=== PATIENT | female | born 1955 | race Caucasian/White ===

== ENCOUNTER 2016-12-28 04:49 | Day surgery (SDC) | payer BC ==
[~2016-12-28 04:49] MED LIST: ACET500CAP PO; AMIT10 PO; ARAVA OR; ARAVA10 PO; ARAVA20 PO; ASA5GR PO; ASAB PO; BACDS PO; BENTYL20 PO; CARMOL TOP; COMP10B PO; DIL2TAB PO; DIL4TAB PO; ENBREL25 MG SC; ENBREL50 MG/M1 SC; FESO4 PO; FLUCON150 PO; FORTAMET500 MG PO; HUMARA IM; HUMIRA PEN SC; HUMIRA SC; HYZAAR1 TAB PO; IMDUR30 PO; IODOSORB TOP; ISORDIL10 PO; ISOSORB DIN30 MG PO; L20 PO; L40 PO; LEVAQUIN750 MG PO; LIDODERM T; LIOR10 PO; LORTAB 5 PO; LYRICA100 MG PO; MEDROL4 PO; MELA3 PO; MELATONIN5 M1 PO; METHOC750B PO; MICARDIS HCT PO; MICARDIS80 PO; MOBIC7.5 PO; NEUR300 PO; NEUR600 PO; NITROQUICK0.4 MG SL; NITROSPRAY SL; NITROSTAT0.4 MG SL; NORCO1 TA1 PO; ONGLYZA5 MG PO; P5 PO; PR25 PO; PRILO PO; REG PO; RELPAX40 MG PO; SEPTRA DS1 TAB PO; STARLIX120 PO; SUCR PO; T PO; ULTRAM50 PO; VICODIN ES1 TAB PO; X25 PO; X5 PO; ZANAFLEX 4 MG TA4 MG PO; ZOCOR20 PO; ZOFRAN8 PO; ZOVIRAX400 MG PO; [UNRECOGNIZED DRUG - CODE] SC; [UNRECOGNIZED DRUG - SUPPLY]
== END 2016-12-28 07:22 | disposition home or self-care (01) ==
LOC: SDC 04:49
PROVIDERS: Orthopaedic Surgery
PROC: 3E0R3CZ (ICD-10-PCS; 2016-12-28)
PROC: 3E0R33Z Introduction of Anti-inflammatory into Spinal Canal, Percutaneous Approach (ICD-10-PCS; principal; 2016-12-28 07:15)
DX: M54.17 Radiculopathy, lumbosacral region (principal); E11.9 Type 2 diabetes mellitus without complications; F41.9 Anxiety disorder, unspecified; I25.10 Atherosclerotic heart disease of native coronary artery without angina pectoris; G47.30 Sleep apnea, unspecified; D64.9 Anemia, unspecified; M06.9 Rheumatoid arthritis, unspecified; K21.9 Gastro-esophageal reflux disease without esophagitis; Z96.652 Presence of left artificial knee joint; Z95.5 Presence of coronary angioplasty implant and graft; Z98.890 Other specified postprocedural states; Z86.718 Personal history of other venous thrombosis and embolism; Z90.710 Acquired absence of both cervix and uterus; Z90.49 Acquired absence of other specified parts of digestive tract; Z90.89 Acquired absence of other organs
CPT/HCPCS: 82962; J1040; J2250; J2405; J3010; Q9967